=== PATIENT | female | born 1955 | race Caucasian/White ===

== ENCOUNTER 2021-06-17 14:52 | Inpatient (IN) | payer MEDICAID, OTHER ==
[~2021-06-17] VITALS: Ht 162.6 cm; Wt 59.4 kg
--- NOTE | 2021-06-17 14:54 | NUR ---
[facility] 860 FRM HOME C/O GEN WEAKNESS AND LOSS OF APPETITE x 3-4 DAYS PER DRILL OPERATOR AUTOMATIC. PT A/OX1 WITH CONFUSION. TOLERATING R/A WELL WITH NO SOB. CONNECTED PT TO POX AND MONITOR. SAFETY MEASURES IN PLACE
--- NOTE | 2021-06-17 15:08 | NUR ---
FAMILY: DOMINGO URIBEERNESTO: [phone]
--- NOTE | 2021-06-17 15:14 | NUR ---
POC BS 189; PARI PAIGE NOTIFIED
[2021-06-17] MEDS ORDERED: IV NS 0.9% 1,000 ML BAG IV ONE (15:30)
--- NOTE | 2021-06-17 15:36 | NUR ---
RFA #20G S/L; PATENT AND INTACT. IVS NS 1000ML INFUSING ORDERED. BLOOD AND URINE SAMPLE COLLECTED AND SENT TO LAB
--- NOTE | 2021-06-17 15:43 | NUR ---
INTERNAL WHOLESALER AT PT'S BEDSIDE
--- NOTE | 2021-06-17 15:45 | NUR ---
COVID ANTIGEN SWAB COLLECTED AND SENT TO LAB
[2021-06-17 15:58] LABS: BASOPHILS % (AUTO) 0.2 % (0.0-2.0); EOSINOPHILS % (AUTO) 0.2 % (0.0-6.0); HEMATOCRIT 53 % (33-45); HEMOGLOBIN 18.3 g/dL (11.5-14.8); LYMPHOCYTES # (AUTO) 1.3 K/uL (0.8-4.8); LYMPHOCYTES % (AUTO) 10.8 % (20.0-44.0); MEAN CORPUSCULAR HGB CONC 34 g/dl (31.0-36.0); MEAN CORPUSCULAR VOLUME 85 fL (82-100); MONOCYTES % (AUTO) 8.4 % (2.0-12.0); NEUTROPHILS # (AUTO) 9.9 K/uL (1.8-8.9); NEUTROPHILS % (AUTO) 80.4 % (43.0-81.0); PLATELET COUNT (AUTO) 507 K/uL (150-450); RED BLOOD CELL COUNT(AUTO) 6.27 MIL/uL (4.0-5.2); WHITE BLOOD COUNT (AUTO) 12.3 K/uL (4.3-11.0)
[2021-06-17 16:05] LABS: BILIRUBIN,URINE NEGATIVE (NEGATIVE); COLOR,URINE YELLOW (YELLOW); LEUKOCYTE ESTERASE ,URINE NEGATIVE (NEGATIVE); NITRITE, URINE NEGATIVE (NEGATIVE); PROTEIN,URINE 30 mg/dl (NEGATIVE); UGLUCOSE NEGATIVE (NEGATIVE); UROBILINOGEN,URINE 0.2 EU/dL (0.2)
[2021-06-17 16:12] LABS: CALCIUM, SERUM 10.2 mg/dL (8.5-10.1); CREATININE 2.3 mg/dL (0.6-1.3); POTASSIUM 3.1 mmol/L (3.5-5.1)
[2021-06-17 16:21] LABS: RBC,URINE 0-2 /HPF (0-2); WBC,URINE 0-2 /HPF (0-3)
[2021-06-17 16:22] LABS: BACTERIA,URINE None seen /HPF (None Seen)
[2021-06-17 16:30] LABS: ALBUMIN 4.7 g/dL (3.4-5.0); BILIRUBIN,DIRECT 0.2 mg/dL (0.0-0.2); BILIRUBIN,TOTAL 0.5 mg/dL (0.2-1.0); TOTAL PROTEIN, SERUM 10.5 g/dL (6.4-8.2)
[2021-06-17] MEDS ORDERED: IV PREMIX 0.45% NS + KCL 1,000 ML IV ONE (17:00)
--- NOTE | 2021-06-17 17:15 | NUR ---
CALLED PHARMACY TO DELIVER 1/2NS + 20MEQ KCL
[2021-06-17] MEDS ORDERED: LEVE100023 PO ×2 (17:20→18:05)
[2021-06-17] MEDS ORDERED: ALEN70TA80 PO ×2 (17:20→18:05)
[2021-06-17] MEDS ORDERED: LOSA50TA39 PO ×2 (17:20→18:05)
[2021-06-17] MEDS ORDERED: TOPI100T38 PO ×2 (17:20→18:05)
[2021-06-17] MEDS ORDERED: PANT40TA49 PO ×2 (17:20→18:05)
[2021-06-17] MEDS ORDERED: CITA20TA16 PO ×2 (17:20→18:05)
[2021-06-17 17:54] LABS: LYMPHOCYTES % (MANUAL) 10 % (16-48); MONOCYTES % (MANUAL) 6 % (0-11.0); NEUTROPHILS % (MANUAL) 84 (42-76)
[2021-06-17] MEDS ORDERED: IV PREMIX D5 1/2NS + KCL 1,000 ML IV ONE (18:00)
[2021-06-17] MEDS ORDERED: LABETALOL 20 MG/4 ML VIAL IV PRN (19:00)
[2021-06-17] MEDS ORDERED: Z GUARD REMEDY 4 OZ OINT TP PRN (19:00)
[2021-06-17] MEDS ORDERED: MORPHINE SULFATE INJ 2 MG/ML DISP.SYRIN IV PRN (19:00)
[2021-06-17] MEDS ORDERED: ALENDRONATE 70 MG TABLET PO SCH (19:00)
[2021-06-17] MEDS ORDERED: ACETAMINOPHEN 325 MG TABLET PO PRN (19:00)
[2021-06-17] MEDS ORDERED: LORAZEPAM INJ 2 MG/ML VIAL IV PRN (19:00)
[2021-06-17] MEDS ORDERED: ONDANSETRON HCL/PF 4 MG/2 ML VIAL IVP PRN (19:00)
[2021-06-17] MEDS ORDERED: LEVETIRACETAM (500MG) 500 MG/5 ML VIAL IV ONE (21:21)
[2021-06-17] MEDS ORDERED: ENOXAPARIN SODIUM 30 MG/0.3 ML DISP.SYRIN ONE (21:22)
[2021-06-17] MEDS: LEVETIRACETAM (500MG) 500 MG in IV NS 0.9% 100 ML IV SCH (21:27)
[2021-06-17] MEDS: ENOXAPARIN SODIUM 30 MG/0.3 ML DISP.SYRIN SQ SCH (21:31)
[2021-06-17] MEDS: IV NS 0.9% 1,000 ML IV PRN (23:42)
[2021-06-18] MEDS ORDERED: ACETAMINOPHEN 325 MG TABLET ONE (05:09)
[2021-06-18 05:58] LABS: BASOPHILS % (AUTO) 0.3 % (0.0-2.0); EOSINOPHILS % (AUTO) 1.5 % (0.0-6.0); HEMATOCRIT 41 % (33-45); HEMOGLOBIN 14.1 g/dL (11.5-14.8); LYMPHOCYTES % (AUTO) 26.2 % (20.0-44.0); MEAN CORPUSCULAR HGB CONC 35 g/dl (31.0-36.0); MEAN CORPUSCULAR VOLUME 85 fL (82-100); MONOCYTES # (AUTO) 0.9 K/uL (0.1-1.30); MONOCYTES % (AUTO) 11.4 % (2.0-12.0); NEUTROPHILS # (AUTO) 4.6 K/uL (1.8-8.9); NEUTROPHILS % (AUTO) 60.6 % (43.0-81.0); PLATELET COUNT (AUTO) 329 K/uL (150-450); RED BLOOD CELL COUNT(AUTO) 4.81 MIL/uL (4.0-5.2); WHITE BLOOD COUNT (AUTO) 7.5 K/uL (4.3-11.0)
[2021-06-18 06:24] LABS: POTASSIUM 2.9 mmol/L (3.5-5.1)
[2021-06-18 06:25] LABS: BILIRUBIN,TOTAL 0.5 mg/dL (0.2-1.0); CALCIUM, SERUM 8.5 mg/dL (8.5-10.1); CREATININE 1.3 mg/dL (0.6-1.3); PHOSPHORUS 2.5 mg/dL (2.5-4.9)
[2021-06-18 06:26] LABS: ALBUMIN 3.3 g/dL (3.4-5.0); MAGNESIUM 2.4 mg/dL (1.8-2.4); TOTAL PROTEIN, SERUM 7.5 g/dL (6.4-8.2)
[2021-06-18] MEDS ORDERED: PANTOPRAZOLE 40 MG TABLET.DR PO ONE (07:41)
[2021-06-18] MEDS: PANTOPRAZOLE 40 MG TABLET.DR PO SCH (07:42)
[2021-06-18] MEDS ORDERED: LOSARTAN POTASSIUM 50 MG TABLET ONE (08:41)
[2021-06-18] MEDS ORDERED: TOPIRAMATE 25 MG TABLET ONE ×2 (08:41→17:52)
[2021-06-18] MEDS: LOSARTAN POTASSIUM 50 MG TABLET PO SCH (08:54)
[2021-06-18] MEDS: MEGESTROL ACETATE 40 MG TABLET PO SCH ×2 (08:55→17:53)
[2021-06-18] MEDS: TOPIRAMATE 25 MG TABLET PO SCH ×2 (08:55→17:53)
[2021-06-18] MEDS: CITALOPRAM HYDROBROMIDE 20 MG TABLET PO SCH (08:55)
[2021-06-18] MEDS: LEVETIRACETAM (500MG) 500 MG in IV NS 0.9% 100 ML IV SCH ×2 (08:57→21:31)
[2021-06-18] MEDS ORDERED: POTASSIUM CL. PREMIX PERIPHER. 200 ML ONE (13:52)
[2021-06-18] MEDS: IV NS 0.9% 1,000 ML IV PRN (13:59)
[2021-06-18] MEDS: POTASSIUM CL. PREMIX PERIPHER. 50 ML IV SCH ×4 (14:00→17:35)
[2021-06-18] MEDS ORDERED: POTASSIUM CHLORIDE 20 MEQ TAB.PRT.SR PO ONE (17:52)
[2021-06-18] MEDS ORDERED: MEGESTROL ACETATE 40 MG TABLET ONE (17:52)
[2021-06-18] MEDS: POTASSIUM CHLORIDE 20 MEQ TAB.PRT.SR PO SCH (17:53)
--- NOTE | 2021-06-18 19:53 | NUR ---
REPORT GIVEN TO NURSE OMID FOR TABBY
--- NOTE | 2021-06-18 20:24 | NUR ---
MS 304-2
--- NOTE | 2021-06-18 20:51 | NUR ---
report given to ira adamson
--- NOTE | 2021-06-18 20:53 | NUR ---
transferring pt via acls to 304-2
[2021-06-18 21:00] VITALS: BP 109/78
[2021-06-18 21:15] VITALS: BP 109/60
--- NOTE | 2021-06-18 21:15 | NUR ---
DISPOSITION CLERK NOTES PT ARRIEVED TO UNIT VIA ALPA. PT A/O X1 WITH CONFUSION PT ABLE TO MAKE NEEDS KNOWN. NO PAIN OR RESPIRATORY DISTRESS NOTED AT THIS TIME. PT ON ROOM AIR TOLERATING WELL. PT NOTED WITH IV ACCES ON THE RIGHT FOREARM 18G FLUSHING WELL. PT HAS NS RUNNING @ 75 ML/HR. ON TELE MONITOR READING SR 80S. PT ON SEIZURE PRECAUTIONS. HOB ELEVATED AT AL TIMES. SKIN ASSESMENT DONE NO DISCOLORATION NOTED SKIN DRYAND WARM. PT NOTED WITH SOME SACRUM REDNESS PHOTO TAKEN AND PLACED IN CHART. WOUND CONSULT ORDERED. CALL LIGHT WITHIN REACH. WILL CONTINUE TO MONITOR.
[2021-06-18] MEDS: ENOXAPARIN SODIUM 30 MG/0.3 ML DISP.SYRIN SQ SCH (21:46)
[2021-06-19] VITALS: BP 121/64
[2021-06-19 06:48] LABS: CALCIUM, SERUM 8.3 mg/dL (8.5-10.1); CREATININE 0.8 mg/dL (0.6-1.3)
[2021-06-19 06:50] LABS: THYROID STIMULATING HORMONE 1.403 uIU/mL (0.358-3.74)
--- NOTE | 2021-06-19 06:50 | NUR ---
FLORIST DESIGNER NOTES PT A/O X1-2 WITH CONFUSION PT ABLE TO MAKE NEEDS KNOWN. NO PAIN OR RESPIRATORY DISTRESS NOTED AT THIS TIME. PT ON ROOM AIR TOLERATING WELL. PT NOTED WITH IV ACCESS ON THE RIGHT FOREARM 18G FLUSHING WELL. PT HAS NS RUNNING @ 75 ML/HR. ON TELE MONITOR READING SR 80S. PT ON SEIZURE PRECAUTIONS. HOB ELEVATED AT AL TIMES. ALL DUE MEDS GIVEN AND TOLERATED WELL. ALL NURSING NEEDS MET THROUGHOUT THE SHIFT. CALL LIGHT WITHIN REACH. WILL ENDORSE CARE TO DAY SHIFT NURSE.
[2021-06-19 06:59] VITALS: BP 116/56
[2021-06-19 07:14] LABS: POTASSIUM 2.8 mmol/L (3.5-5.1)
[2021-06-19] MEDS: PANTOPRAZOLE 40 MG TABLET.DR PO SCH (07:30)
--- NOTE | 2021-06-19 07:30 | NUR ---
DEVELOPMENT CHEMIST NOTES PT IN BED, AWAKE, ALERT AND VERBALLY RESPONSIVE, NO COMPLAINT OF PAIN, NOT IN DISTRESS, IV FLUIDS INFUSING WELL, KEPT WARM AND COMFORTABLE IN BED.
[2021-06-19 08:00] VITALS: BP 142/70
[2021-06-19] MEDS: LEVETIRACETAM (500MG) 500 MG in IV NS 0.9% 100 ML IV SCH (08:11)
[2021-06-19] MEDS: MEGESTROL ACETATE 40 MG TABLET PO SCH ×2 (09:00→18:44)
[2021-06-19] MEDS: LOSARTAN POTASSIUM 50 MG TABLET PO SCH (09:00)
[2021-06-19] MEDS: TOPIRAMATE 25 MG TABLET PO SCH ×2 (09:00→18:44)
[2021-06-19] MEDS: POTASSIUM CHLORIDE 20 MEQ TAB.PRT.SR PO SCH ×2 (09:00→18:44)
[2021-06-19] MEDS: CITALOPRAM HYDROBROMIDE 20 MG TABLET PO SCH (09:00)
[2021-06-19 12:00] VITALS: BP 117/71
[2021-06-19] MEDS ORDERED: POTA20TA83 PO (12:07)
[2021-06-19] MEDS ORDERED: MEGE40TA7 PO (12:07)
[2021-06-19 16:00] VITALS: BP 122/72
--- NOTE | 2021-06-19 19:20 | NUR ---
SUPERVISOR BAKERY SANITATION NOTE: RECEIVED REPORT AT PATIENT'S BEDSIDE. PATIENT TO BE DISCHARGED THIS EVENING WITH FAMILY. FAMILY CONTACTED AND NOTIFIED PER REPORT. PATIENT IN NAD AND VSS AT THIS TIME. PATIENT AWAKE AND WATCHING TV. DELAYED MENTATION. TELEMETRY READING SR. BED IN LOW/LOCKED POSITION. SIDE RAILS UP X2. HOB IN SEMI WHITE'S POSITION. SEIZURE PRECAUTIONS IN PLACE. CALL LIGHT WITHIN REACH.
--- NOTE | 2021-06-19 19:30 | NUR ---
TEST ENGINE MECHANIC NOTES PT IN BED, AWAKE, VERBALLY RESPONSIVE, WITH PERIODS OF CONFUSION, ASSISTED WITH MEALS, ABLE TO TOLERATE, SEEN BY DR. IYER, DISCHARGE ORDER GIVEN, PT SEEN BY PHYSICAL THERAPY, PER OIL DRILLER, HOME CARE WILL SEND A FAMILY MEMBER TO SQUARE SHEAR OPERATOR PATIENT, BELONGINGS ACCOUNTED FOR, PT HAS NEW PRESCRIPTIONS AT [facility], ENDORSED TO FINISHER MACHINE NURSE FOR CONTINUITY OF CARE.
[2021-06-19 20:00] VITALS: BP 109/67
[2021-06-19] MEDS: LEVETIRACETAM (250 MG) 250 MG TABLET PO SCH (21:34)
[2021-06-19] MEDS: ENOXAPARIN SODIUM 30 MG/0.3 ML DISP.SYRIN SQ SCH (21:35)
--- NOTE | 2021-06-19 22:00 | NUR ---
RN MS NOTES MULTIPLE ATTEMPTS MADE TO CONTACT FAMILY BY FLOOR NURSING AND NURSING OFFICER WITHOUT SUCCESS. NO ANSWER. NOTIFIED DR. THOMAS PATIENT WILL NOT BE DISCHARGED THIS EVENING DUE TO INABILITY TO CONTACT FAMILY TO CONFIRM RADIAL ROUTER OPERATOR. ACKNOWLEDGES.
[2021-06-20] VITALS: BP 136/77
[2021-06-20 05:00] VITALS: BP_SYST 125; BP_SYST 134; BP_DIAS 55; BP_DIAS 76
[2021-06-20] MEDS: PANTOPRAZOLE 40 MG TABLET.DR PO SCH (06:37)
[2021-06-20 06:53] LABS: CALCIUM, SERUM 8.4 mg/dL (8.5-10.1); CREATININE 0.7 mg/dL (0.6-1.3)
[2021-06-20 08:00] VITALS: BP 133/78
--- NOTE | 2021-06-20 08:00 | NUR ---
RN Opening Note Patient received in bed, AO x 2, able to responds physical stimuli. No distress observed. Skin is warm to touch, keep clean/dry, intact IV site. Respiratory even and unlabored on RA. Kept elevated HOB for ensure air/aspiration precaution and remains lower position of the bed. call light within reach, will continue to monitor.
[2021-06-20] MEDS: MEGESTROL ACETATE 40 MG TABLET PO SCH ×2 (08:20→18:42)
[2021-06-20] MEDS: POTASSIUM CHLORIDE 20 MEQ TAB.PRT.SR PO SCH ×2 (08:20→18:42)
[2021-06-20] MEDS: LEVETIRACETAM (250 MG) 250 MG TABLET PO SCH ×2 (08:20→21:13)
[2021-06-20] MEDS: TOPIRAMATE 25 MG TABLET PO SCH ×2 (08:20→18:42)
[2021-06-20] MEDS: LOSARTAN POTASSIUM 50 MG TABLET PO SCH (08:20)
[2021-06-20] MEDS: CITALOPRAM HYDROBROMIDE 20 MG TABLET PO SCH (08:20)
[2021-06-20 12:00] VITALS: BP 130/83
[2021-06-20 16:00] VITALS: BP 110/62
[2021-06-20] MEDS: ENSURE ENLIVE 237 ML LIQUID (VANILLA) PO SCH (17:00)
--- NOTE | 2021-06-20 18:00 | NUR ---
RN Closing Note Patient in bed, resting. No distress observed. Skin is warm to touch. Respiratory even and unlabored. Will endorse tie bucker.
--- NOTE | 2021-06-20 19:40 | NUR ---
RN NOTES RECEIVED PATIENT WAITING TO BE DISCHARGED, FAMILY WILL PRODUCTION COORDINATOR THE PATIENT.
[2021-06-20 20:00] VITALS: BP 126/82
--- NOTE | 2021-06-20 20:00 | NUR ---
RN NOTES DOMINGO ANTONY (CAREGIVER)CALLED AND INFORMED US THAT HE CAN'T PICKED UP THE PATIENT BECAUSE HE STATED HE JUST CAME BACK, [place], CLARIFIED WITH HIM PER DAYSHIFT NURSE CAME CONTACT LENS MANUFACTURER SPOKE TO HIM . DOMINGO TOLD ME THAT THE LINE WAS NOT CLEAR WHEN HE SPOKE TO THE SUPERVISOR WIRE ROPE FABRICATION, AND HE WAS COMPLAINING THAT HOW COME THE PATIENT WILL BE DISCHARGED TONIGHT SINCE JOSE RAMON PATIENT WAS ONLY HERE FOR 4 DAYS. I EXPLAINED TO HIM THAT THE DOCTOR ALREADY CLEARED THE PATIENT TO BE DISCHARGE AND THE PT ALSO SAW THE PATIENT. I ALSO TOLD HIM SINCE YESTERDAY THE PATIENT IS ALREADY CLEARED TO BE DISCHARGE. DOMINGO STILL ARGUING WITH ME, SO I PASSED THE PHONE TO THE CHARGE NURSE AND HE TOLD HER THE SAME THING. SUPERVISOR WIRE ROPE FABRICATION MADE AWARE
[2021-06-20] MEDS: ENOXAPARIN SODIUM 30 MG/0.3 ML DISP.SYRIN SQ SCH (21:14)
[2021-06-21] MEDS ORDERED: POTASSIUM CHLORIDE 20 MEQ TAB.PRT.SR PO ONE
--- NOTE | 2021-06-21 06:51 | NUR ---
rn notes awake, morning care rendered, call light within reach, sisderailsupx2, pt. needs attended
[2021-06-21 08:00] VITALS: BP 131/69
[2021-06-21] MEDS: ENSURE ENLIVE 237 ML LIQUID (VANILLA) PO SCH ×2 (08:00→17:43)
--- NOTE | 2021-06-21 08:00 | NUR ---
RN Opening Note Patient received in bed, AO x 2. No distress observed. Able to responds physical stimuli. Skin is warm to touch, keep clean/dry, intact IV site. Respiratory even and unlabored on RA. Kept elevated HOB for ensure air/aspiration precaution and remains lower position of the bed. call light within reach, will continue to monitor.
[2021-06-21 09:10] VITALS: BP 131/69
[2021-06-21] MEDS: MEGESTROL ACETATE 40 MG TABLET PO SCH ×2 (09:10→17:36)
[2021-06-21] MEDS: PANTOPRAZOLE 40 MG TABLET.DR PO SCH (09:10)
[2021-06-21] MEDS: TOPIRAMATE 25 MG TABLET PO SCH ×2 (09:10→17:36)
[2021-06-21] MEDS: CITALOPRAM HYDROBROMIDE 20 MG TABLET PO SCH (09:10)
[2021-06-21] MEDS: LEVETIRACETAM (250 MG) 250 MG TABLET PO SCH (09:10)
[2021-06-21] MEDS: LOSARTAN POTASSIUM 50 MG TABLET PO SCH (09:10)
[2021-06-21] MEDS: POTASSIUM CHLORIDE 20 MEQ TAB.PRT.SR PO SCH (09:10)
--- NOTE | 2021-06-21 12:57 | NUR ---
SW made an APS report due to Abandonment. APS Intake #[id number]
--- NOTE | 2021-06-21 18:30 | NUR ---
Patient d/c to assist leaving where patient came from. 2 marketing technology coordinator picked up patient and given report. Patient in stable condition. Denies distress.
== END 2021-06-21 19:15 | disposition home or self-care (01) | DRG 421 ==
LOC: ER 14:55 → TRANSITION 19:33 → TELE 06-18 20:25 → MED 06-20 20:45
PROVIDERS: ADMIT Internal Medicine; ATTEND Nurse Practitioner Acute Care
DX: R62.7 Adult failure to thrive (principal); N17.0 Acute kidney failure with tubular necrosis; G93.41 Metabolic encephalopathy; R53.2 Functional quadriplegia; E86.0 Dehydration; D75.1 Secondary polycythemia; G40.909 Epilepsy, unspecified, not intractable, without status epilepticus; Z20.822 Contact with and (suspected) exposure to COVID-19; Z86.73 Personal history of transient ischemic attack (TIA), and cerebral infarction without residual deficits; Z79.83 Long term (current) use of bisphosphonates; Z79.899 Other long term (current) drug therapy; M81.0 Age-related osteoporosis without current pathological fracture; E87.6 Hypokalemia; I10 Essential (primary) hypertension; D75.838 Other thrombocytosis
CPT/HCPCS: 36415; 71045-TC; 80048-TC; 80053-TC; 80076-TC; 81001; 82550-TC; 82962-TC; 83605-TC; 83690-TC; 83735-TC; 84100-TC; 84443-TC; 85025-TC; 87081-TC; 87086-TC; 92526; 92611-TC; 97116-TC; 97530-TC; C9803; G0378; J1650; J1953; J3480; J3490; J7030